=== PATIENT | female | born 1985 | race Caucasian/White ===

== ENCOUNTER 2019-02-12 06:31 | Inpatient (IN) | payer OTHER ==
[2019-02-12] MEDS ORDERED: METHYLERGONOVINE 0.2 MG/ML 1 ML AMP IM PRN (06:50)
[2019-02-12] MEDS ORDERED: OXYTOCIN 10 UNIT/ML 1 ML VIAL IM PRN (06:50)
[2019-02-12] MEDS ORDERED: CARBOPROST TROMETHAMINE 250 MCG/ML 1 ML AMP IM PRN (06:50)
[2019-02-12] MEDS ORDERED: AMPICILLIN 2,000 MG in SODIUM CHLORIDE 0.9% 100 ML IVPB STA (06:50)
[2019-02-12] MEDS ORDERED: TERBUTALINE 1 MG/ML VIAL SQ PRN (06:50)
[2019-02-12] MEDS ORDERED: LIDOCAINE 0.5% (PF) 5 MG/ML (50 ML SDV) SQ PRN (06:50)
[2019-02-12] MEDS ORDERED: BUTORPHANOL 1 MG/ML 1 ML VIAL IV PRN (06:52)
[2019-02-12] MEDS: LACTATED RINGERS 1,000 ML IV SCH ×2 (07:02→18:32)
[2019-02-12 07:13] LABS: Basophils # (A) 0.1 k/uL (0-0.2); Basophils % (A) 1 %; Eosinophils # (A) 0.2 k/uL (0-0.7); Eosinophils % (A) 2 %; HCT 39.6 % (34.0-46.0); HGB 12.8 gm/dL (11.4-16.0); Lymphocytes # (A) 2.4 k/uL (1.0-4.8); Lymphocytes % (A) 21 %; MCH 30.3 pg (25.0-35.0); MCHC 32.2 g/dL (31.0-37.0); MCV 93.8 fL (80.0-100.0); Mean Platelet Volume 6.7; Monocytes # (A) 0.6 k/uL (0-1.0); Monocytes % (A) 5 %; Neutrophils # (A) 7.8 k/uL (1.3-7.7); Neutrophils % (A) 69 %; Platelet Count 357 k/uL (150-450); RBC 4.22 m/uL (3.80-5.40); RDW 13.1 % (11.5-15.5); WBC 11.2 k/uL (3.8-10.6)
[2019-02-12 07:16] VITALS: BMI 27.8
[2019-02-12] MEDS ORDERED: SODIUM CHLORIDE 0.9% 100 ML BAG ONE (07:30)
[2019-02-12] MEDS ORDERED: fentaNYL (PF) 50 MCG/ML 5 ML AMP ONE (07:30)
[2019-02-12] MEDS ORDERED: ROPIVACAINE 5MG/ML 20ML VIAL ONE (07:30)
[2019-02-12] MEDS ORDERED: OXYTOCIN 30 UNITS/500 ML NS 30 UNIT in SALINE 1 500ML.BAG IV SCH (08:30)
--- NOTE | 2019-02-12 09:38 | P.PROBDLV ---
Vaginal Delivery Note - . Vaginal Delivery Note: This pleasant 33-year-old 2 para 1001 at 39-5/7 weeks presented to labor and delivery this morning with complaints of regular painful contractions. Patient had a relatively uncomplicated care with Dr. Jauregui. Patient was admitted progressed to 7 requested epidural, which was placed by anesthesia without difficulty. Patient progressed to complete, amniotomy was performed and clear fluid was obtained. Patient began pushing and had a normal spont aneous vaginal delivery of a viable female infant, at 926, Apgars of 9 and 9 at one and 5 minutes respectively. Weight is pending. After a two-minute delayed the umbilical cord is doubly clamped and cut and the placenta was delivered spontaneously intact with a three-vessel cord being noted. On inspection the patient's vaginal vault lacerations were noted. The uterus sounded to be firm and below the umbilicus lochia was noted to be minimal at this time. Estimated blood loss for the delivery 200 mL. Next Patient and tolerated delivery well and are resting comfortably.
[2019-02-12] MEDS ORDERED: diphenhydrAMINE 50 MG CAP PO PRN (09:39)
[2019-02-12] MEDS ORDERED: LANOLIN CREAM 5 GM TUBE TOPICAL PRN (09:39)
[2019-02-12] MEDS ORDERED: diphenhydrAMINE 50 MG/ML 1 ML VIAL IVP PRN ×2 (09:39)
[2019-02-12] MEDS ORDERED: WITCH HAZEL 1 EACH MED..PAD TOPICAL PRN (09:39)
[2019-02-12] MEDS ORDERED: HYDROCORTISONE 2.5% RECTAL CREAM 30 GM TUBE RECTAL PRN (09:39)
[2019-02-12] MEDS ORDERED: BENZOCAINE/MENTHOL SPRAY 1 GM/SPRAY AEROSOL TOPICAL PRN (09:39)
[2019-02-12] MEDS ORDERED: HYDROcodone/APAP 5-325MG 1 EACH TAB PO PRN (09:39)
[2019-02-12] MEDS ORDERED: ZOLPIDEM 5 MG TAB PO PRN (09:39)
[2019-02-12] MEDS ORDERED: diphenhydrAMINE 25 MG CAP PO PRN (09:39)
[2019-02-12] MEDS ORDERED: ACETAMINOPHEN TAB 325 MG TAB PO PRN (09:39)
[2019-02-12] MEDS ORDERED: SIMETHICONE 80 MG CHEWABLE PO PRN (09:39)
--- NOTE | 2019-02-12 09:42 | P.HPOB ---
History of Present Illness H&P Date: 02/12/19 Chief Complaint: IUP @ 39 5/7 weeks, labor This is a 33-year-old 2 para 1001 at 39-5/7 weeks estimated due date 02/14/19 based on last menstrual period, presents to labor and delivery with complaints of regular painful contractions. On initial cervical exam she was no michael to be 5 cm. Patient denied loss of fluid or vaginal bleeding. Patient notes good movement today patient has been receiving routine care with Dr. Corado since the first trimester. On patient's 20 week ultrasound placental findings consistent with peripheral cord insertion. labs she has a blood type of A+, rubella immune, RPR nonreactive, hepatitis B surface antigen negative, HIV negative. Group beta strep +01/10/19. Review of Systems Constitutional: Denies chills, Denies fatigue, Denies fever Ears, nose, mouth and throat: Denies headache Cardiovascular: Reports leg edema Respiratory: Denies dyspnea Gastrointestinal: Denies nausea, Denies vomiting Genitourinary: Reports Past Medical History Past Medical History: No Reported History History of Any Multi-Drug Resistant Organisms: None Reported Additional Past Surgical History / Comment(s): gland removed from labia Past Anesthesia/Blood Transfusion Reactions: No Reported Reaction Past Psychological History: No Psychological Hx Reported Smoking Status: Current every day smoker Past Alcohol Use History: None Reported Past Drug Use History: None Reported - Past Family History Mother Family Medical History: Thyroid Disorder Medications and Allergies Home Medications Medication Instructions Recorded Confirmed Type Pnv No.95/Ferrous Fum/Folic AC 1 tab PO DAILY 02/12/19 02/12/19 History [ Multivitamin Tablet] Allergies Allergy/AdvReac Type Severity Reaction Status Date / Time No Known Allergies Allergy Verified 02/12/19 06:49 Exam Osteopathic Statement: *. No significant issues noted on an osteopathic structural exam other than those noted in the History and Physical/Consult. Vital Signs Temp Pulse Resp BP 02/12/19 07:08 96.8 F L 78 18 120/71 02/12/19 06:50 96.8 F L 78 18 120/71 Intake and Output 02/11/19 02/12/19 02/12/19 22:59 06:59 14:59 Other: Weight 66.814 kg Targeted physical exam is performed on this date in general this is a well- nourished well-developed female in no acute distress, her breathing is noted to be nonlabored and her heart has regular rate and rhythm her abdomen is gravid and appropriate for gestational age. heart tones are category 1 and she is shabbir every 3-5 minutes. On cervical exam she is complete/100/0 station, amniotomy is performed and clear fluid was obtained. Results Result Diagrams: 02/12/19 07:02 Abnormal Lab Results - Last 24 Hours (Table) 02/12/19 Range/Units 07:02 WBC 11.2 H (3.8-10.6) k/uL Neutrophils # 7.8 H (1.3-7.7) k/uL Assessment and Plan (1) Term Current Visit: Yes Status: Acute Code(s): Z34.90 - ENCNTR FOR SUPRVSN OF NORMAL , UNSP, UNSP TRIMESTER SNOMED Code(s): 44575091 (2) Positive GBS test Current Visit: Yes Status: Acute Code(s): B95.1 - STREPTOCOCCUS, GROUP B, CAUSING DISEASES CLASSD ELSWHR SNOMED Code(s): 526141683 (3) Active labor Current Visit: Yes Status: Acute Code(s): EOE2201 - SNOMED Code(s): 866053975 Plan: Patient is admitted to labor and delivery, anticipate spontaneous vaginal delivery.
[2019-02-12] MEDS ORDERED: OXYTOCIN 20 UNITS/1000 ML NS 1,000 ML IV SCH (09:45)
[2019-02-12] MEDS ORDERED: AMPICILLIN 1,000 MG in SODIUM CHLORIDE 0.9% 50 ML IVPB SCH (11:00)
[2019-02-12] MEDS: IBUPROFEN 600 MG TAB PO PRN ×2 (16:04→22:20)
[2019-02-12] MEDS: SENNOSIDES-DOCUSATE SODIUM 1 EACH TAB PO SCH (20:06)
[2019-02-13] MEDS: IBUPROFEN 600 MG TAB PO PRN ×2 (05:13→14:55)
[2019-02-13 07:42] LABS: Basophils % (A) 0 %; Eosinophils # (A) 0.2 k/uL (0-0.7); Eosinophils % (A) 1 %; HCT 31.8 % (34.0-46.0); HGB 10.4 gm/dL (11.4-16.0); Lymphocytes # (A) 2.2 k/uL (1.0-4.8); Lymphocytes % (A) 17 %; MCH 30.5 pg (25.0-35.0); MCHC 32.6 g/dL (31.0-37.0); MCV 93.4 fL (80.0-100.0); Mean Platelet Volume 7.7; Monocytes # (A) 0.6 k/uL (0-1.0); Monocytes % (A) 5 %; Neutrophils # (A) 10.1 k/uL (1.3-7.7); Neutrophils % (A) 76 %; Platelet Count 300 k/uL (150-450); RDW 13.5 % (11.5-15.5); WBC 13.3 k/uL (3.8-10.6)
[2019-02-13] MEDS: SENNOSIDES-DOCUSATE SODIUM 1 EACH TAB PO SCH ×2 (08:23→20:10)
--- NOTE | 2019-02-13 08:43 | P.PN ---
Subjective Progress Note Date: 02/13/19 Principal diagnosis: day #1 Slept well. Minimal lochia rubra. No complaints. Objective - Vital Signs Vital signs: Vital Signs Temp 96.7 F L 02/12/19 23:24 Pulse 65 02/12/19 23:24 Resp 18 02/12/19 23:24 BP 116/69 02/12/19 23:24 Pulse Ox 97 02/12/19 16:00 Intake & Output 02/12/19 02/13/19 02/13/19 18:59 06:59 18:59 Intake Total 600 Balance 600 Intake: Oral 600 Other: # Voids 2 2 - Constitutional General appearance: Present: average body habitus, cooperative - EENT Eyes: Present: PERRLA ENT: Present: hearing grossly normal - Neck Thyroid: bilateral: normal size - Respiratory Respiratory: bilateral: CTA - Cardiovascular Rhythm: regular - Gastrointestinal General gastrointestinal: Present: normal bowel sounds - Genitourinary Genitourinary Comment(s): Fundus firm, midline, symmetric, 18 week size - Integumentary Integumentary: Present: normal - Neurologic Neurologic: Present: CNII-XII intact - Musculoskeletal Musculoskeletal: Present: gait normal, strength equal bilaterally, left sided weakness - Psychiatric Psychiatric: Present: A&O x's 3, appropriate affect, intact judgment & insight - Labs CBC & Chem 7: 02/13/19 06:28 Labs: Abnormal Lab Results - Last 24 Hours (Table) 02/13/19 Range/Units 06:28 WBC 13.3 H (3.8-10.6) k/uL RBC 3.40 L (3.80-5.40) m/uL Hgb 10.4 L (11.4-16.0) gm/dL Hct 31.8 L (34.0-46.0) % Neutrophils # 10.1 H (1.3-7.7) k/uL Assessment and Plan Assessment: day #1, doing well. infant receiving antibiotics for positive group B strep status. Plan: Continue care today. Likely discharge home tomorrow. Time with Patient: Less than 30
[2019-02-14] MEDS: IBUPROFEN 600 MG TAB PO PRN (00:03)
--- NOTE | 2019-02-14 07:44 | P.DS ---
Providers Date of admission: 02/12/19 06:43 Expected date of discharge: 02/14/19 Attending physician: Denae Corado Primary care physician: Stated None Hospital Course: This is a 34 -year-old 2 para 1001 EDC 02/14/2019 who presented at 39- 5/7 weeks' gestation in active spontaneous labor. was remarkable for positive group B strep cultures, rubella status immune, blood type A positive. Please see dictated history and physical for details. Patient was admitted, artificial amniorrhexis revealed clear fluid. She went on to swiftly deliver a liveborn female infant with scores of 9 and 9 at one and 5 minutes respectively. Infant weighed 6 lbs. 5 oz. or 2885 g. No lacerations or suturing was necessary. Please see dictated delivery note for details. Patient today is doing well, she is voiding, ambulating, passing flatus without difficulty. Vital signs are stable and she is afebrile. Fundus is firm and in the midline, symmetric and 18 week size. Breast-feeding is going well. Breast pump has been prescribed and received. Orting infant is doing well. Patient is judged to be in very good condition for discharge home. Extremities are negative for edema. Patient will follow-up with me in the office in 6 weeks. I have reminded her no intercourse, tampons or douching. She will use [id number] Advil or Aleve as needed for pain. She will call with any fevers shakes or chills, foul smelling or copious lochia, with the passage of large blood clots, with any pain not alleviated by [id number] products, or indeed with any concerns. We have briefly reviewed options for contraception and we will review this further in the office. Plan - Discharge Summary Discharge Rx Participant: No New Discharge Prescriptions: No Action Pnv No.95/Ferrous Fum/Folic AC [ Multivitamin Tablet] 1 tab PO DAILY Discharge Medication List Pnv No.95/Ferrous Fum/Folic AC [ Multivitamin Tablet] 1 tab PO DAILY 02/12/19 [History] Follow up Appointment(s)/Referral(s): Denae Corado MD [STAFF PHYSICIAN] - 6 Weeks Discharge Disposition: HOME SELF-CARE
[2019-02-14] MEDS: SENNOSIDES-DOCUSATE SODIUM 1 EACH TAB PO SCH (07:52)
[2019-02-14 12:23] VITALS: BP 119/71; PULSE 62; RESP 18; TEMP 98.2
== END 2019-02-14 11:45 | disposition home or self-care (01) | DRG 807 ==
LOC: FBPOP 06:31 → 4FBP 06:43
PROVIDERS: ADMIT Obstetrics & Gynecology Obstetrics; ATTEND Obstetrics & Gynecology
PROC: 10E0XZZ Delivery of Products of Conception, External Approach (ICD-10-PCS; principal; 2019-02-12)
PROC: 00HU33Z Insertion of Infusion Device into Spinal Canal, Percutaneous Approach (ICD-10-PCS; 2019-02-12)
PROC: 3E0R3BZ Introduction of Anesthetic Agent into Spinal Canal, Percutaneous Approach (ICD-10-PCS; 2019-02-12)
DX: O99.824 Streptococcus B carrier state complicating childbirth (principal); Z37.0 Single live birth; O99.334 Smoking (tobacco) complicating childbirth; O71.4 Obstetric high vaginal laceration alone; F17.200 Nicotine dependence, unspecified, uncomplicated; Z3A.39 39 weeks gestation of pregnancy; Z83.49 Family history of other endocrine, nutritional and metabolic diseases
CPT/HCPCS: 85025; 86850; 86900; 86901

== ENCOUNTER 2020-05-19 21:30 | Inpatient (IN) | payer OTHER ==
[2020-05-19] MEDS ORDERED: LIDOCAINE 0.5% (PF) 5 MG/ML (50 ML SDV) SQ PRN (21:48)
[2020-05-19] MEDS ORDERED: OXYTOCIN 10 UNIT/ML 1 ML VIAL IM PRN (21:48)
[2020-05-19] MEDS ORDERED: CARBOPROST TROMETHAMINE 250 MCG/ML 1 ML AMP IM PRN (21:48)
[2020-05-19] MEDS ORDERED: TERBUTALINE 1 MG/ML VIAL SQ PRN (21:48)
[2020-05-19] MEDS ORDERED: METHYLERGONOVINE 0.2 MG/ML 1 ML AMP IM PRN (21:48)
[2020-05-19 21:58] LABS: Basophils # (A) 0.1 k/uL (0-0.2); Basophils % (A) 0 %; Eosinophils # (A) 0.2 k/uL (0-0.7); Eosinophils % (A) 1 %; HCT 34.3 % (34.0-46.0); HGB 11.6 gm/dL (11.4-16.0); Lymphocytes # (A) 2.5 k/uL (1.0-4.8); Lymphocytes % (A) 14 %; MCH 32.2 pg (25.0-35.0); MCHC 33.8 g/dL (31.0-37.0); MCV 95.3 fL (80.0-100.0); Mean Platelet Volume 7.5; Monocytes # (A) 0.9 k/uL (0-1.0); Monocytes % (A) 5 %; Neutrophils # (A) 13.4 k/uL (1.3-7.7); Neutrophils % (A) 78 %; Platelet Count 364 k/uL (150-450); RDW 12.6 % (11.5-15.5); WBC 17.3 k/uL (3.8-10.6)
[2020-05-19] MEDS ORDERED: PENICILLIN G POTASSIUM 5,000,000 UNIT in DEXTROSE 5% IN WATER 100 ML IVPB ONE ×2 (22:00)
[2020-05-19] MEDS: LACTATED RINGERS 1,000 ML IV SCH ×2 (22:07→22:35)
[2020-05-19] MEDS ORDERED: SODIUM CHLORIDE 0.9% 100 ML BAG ONE (22:13)
[2020-05-19] MEDS ORDERED: fentaNYL (PF) 50 MCG/ML 5 ML AMP ONE (22:13)
[2020-05-19] MEDS ORDERED: ROPIVACAINE 5MG/ML 20ML VIAL ONE (22:13)
[2020-05-19] MEDS ORDERED: BUTORPHANOL 1 MG/ML 1 ML VIAL IV PRN (22:21)
--- NOTE | 2020-05-19 22:27 | P.HPOB ---
History of Present Illness H&P Date: 05/19/20 Chief Complaint: 37+ weeks, active labor The patient is a 35-year-old 3 para 2001 admitted at 37+ weeks as established by last menstrual period and confirmed by second trimester ultrasound. She is admitted in active labor with all signs reassuring. Her has been uncomplicated though group B strep status is not available at this time. As result, antibody prophylaxis has been started. Obstetrical history: 3 para 2001 with 2 term vaginal deliveries without complications. Current statistics are listed in history of present illness. EDC of 06/06/2020 was established by last menstrual period and confirmed by second trimester ultrasound. Laboratory workup demonstrates a blood type of A+ with a negative antibody screen. Rubella status is immune. All other laboratory workup was within normal limits aside from abnormal Pap smear for which she had colposcopy and was found low-grade findings. One hour Glucola was within normal limits. Group B strep status is pending. Gynecologic history: Unremarkable with no history of any infections to include STDs. Review of Systems Review of systems is confined to history of present illness. Past Medical History Past Medical History: No Reported History History of Any Multi-Drug Resistant Organisms: None Reported Additional Past Surgical History / Comment(s): gland removed from labia, wisdom tooth extraction Past Anesthesia/Blood Transfusion Reactions: No Reported Reaction Past Psychological History: No Psychological Hx Reported Smoking Status: Current every day smoker Past Alcohol Use History: None Reported Past Drug Use History: None Reported - Past Family History Mother Family Medical History: Thyroid Disorder Medications and Allergies Home Medications Medication Instructions Recorded Confirmed Type Pnv No.95/Ferrous Fum/Folic AC 1 tab PO DAILY 02/12/19 05/19/20 History [ Multivitamin Tablet] Allergies Allergy/AdvReac Type Severity Reaction Status Date / Time No Known Allergies Allergy Verified 02/12/19 06:49 Exam Vital Signs Temp Pulse Resp BP 05/19/20 22:19 97.7 F 80 16 134/68 05/19/20 21:54 97.7 F 65 16 134/68 Intake and Output 05/19/20 05/19/20 05/19/20 06:59 14:59 22:59 Other: # Voids 1 Weight 65.771 kg In general, this is a well-developed, well-nourished white female in some discomfort as she is in active labor. Her heart has a regular rhythm and rate without murmur. Her lungs are clear to auscultation bilaterally in all goff. Her abdomen is gravid, nondistended, has normal active bowel sounds, soft, nontender, and without any palpable masses aside from uterine fundus. Her extremities are without any cyanosis, clubbing, or significant edema and are nontender to palpation bilaterally. Digital cervical examination by the nursing staff demonstrates her cervix to be 6+ meters dilated, 90% effaced, with the vertex in presentation at -1 station. Membranes are intact. Results Result Diagrams: 05/19/20 21:49 Abnormal Lab Results - Last 24 Hours (Table) 05/19/20 Range/Units 21:49 WBC 17.3 H (3.8-10.6) k/uL RBC 3.60 L (3.80-5.40) m/uL Neutrophils # 13.4 H (1.3-7.7) k/uL Assessment and Plan (1) Active labor at term Current Visit: Yes Status: Acute Code(s): ZHT8339 - SNOMED Code(s): 12560799 Plan: The patient is admitted for active management of labor. As group B strep status is unknown and she has had 2 previous positive GBS cultures with previous pregnancies, antibody prophylaxis has been started. She has requested an epidural catheter which is currently being placed. She will have close maternal and surveillance and expectant management will be practice. We will leave the membranes intact to attempt to achieve 4 hours prior to delivery for group B strep prophylaxis. I would anticipate normal spontaneous vaginal delivery.
[2020-05-20] MEDS: LACTATED RINGERS 1,000 ML IV SCH (00:48)
[2020-05-20] MEDS ORDERED: PENICILLIN G POTASSIUM 2,500,000 UNIT in DEXTROSE 5% IN WATER 100 ML IVPB SCH ×2 (02:00)
[2020-05-20] MEDS ORDERED: LANOLIN CREAM 5 GM TUBE TOPICAL PRN (03:41)
[2020-05-20] MEDS ORDERED: diphenhydrAMINE 50 MG CAP PO PRN (03:41)
[2020-05-20] MEDS ORDERED: HYDROcodone/APAP 7.5-325MG 1 EACH TAB PO PRN (03:41)
[2020-05-20] MEDS ORDERED: diphenhydrAMINE 50 MG/ML 1 ML VIAL IVP PRN ×2 (03:41)
[2020-05-20] MEDS ORDERED: ZOLPIDEM 5 MG TAB PO PRN (03:41)
[2020-05-20] MEDS ORDERED: HYDROCORTISONE 2.5% RECTAL CREAM 30 GM TUBE RECTAL PRN (03:41)
[2020-05-20] MEDS ORDERED: HYDROcodone/APAP 5-325MG 1 EACH TAB PO PRN (03:41)
[2020-05-20] MEDS ORDERED: BENZOCAINE/MENTHOL SPRAY 1 GM/SPRAY AEROSOL TOPICAL PRN (03:41)
[2020-05-20] MEDS ORDERED: SIMETHICONE 80 MG CHEWABLE PO PRN (03:41)
[2020-05-20] MEDS ORDERED: diphenhydrAMINE 25 MG CAP PO PRN (03:41)
[2020-05-20] MEDS ORDERED: OXYTOCIN 20 UNITS/1000 ML NS 1,000 ML IV SCH (03:45)
--- NOTE | 2020-05-20 03:46 | P.PROBDLV ---
Vaginal Delivery Note - . Vaginal Delivery Note: The patient is a 35-year-old 3 para 2001 admitted at 37-3/7 weeks by good dating parameters. She is admitted in active labor with all signs reassuring. Her has been otherwise uncomplicated and group B strep status is unknown. As result, she had antibiotic prophylaxis started and had her membranes left intact until delivery in order to attempt to facilitate the antibiotic prophylaxis. She did remain for 2 doses of antibiotics during which time she progressed to complete. She underwent artificial rupture of membranes for clear fluid and then pushed once to a normal spontaneous vaginal delivery of a viable 6 lbs. 5 oz. baby boy with Apgars of 9 at 1 minute and 9 at 5 minutes delivered in the direct occiput anterior position. The placenta delivered spontaneously while I was still holding the infant on its own as the cord was being clamped. Examination of placenta demonstrated that it was grossly normal though there was approximately one third of the placenta that appeared to have adherent clot consistent with possible ongoing abruption. There was otherwise a centrally inserted grossly normal three-vessel cord. There were no lacerations of the perineum, vagina, or cervix. Estimated blood loss for the entire case is approximately 100 mL. All sponge, instrument, needle counts were correct. Both mother and infant are resting comfortably in recovery.
[2020-05-20] MEDS: SENNOSIDES-DOCUSATE SODIUM 1 EACH TAB PO SCH ×2 (08:27→20:21)
[2020-05-20] MEDS: IBUPROFEN 600 MG TAB PO PRN ×3 (11:11→23:56)
[2020-05-20 12:28] VITALS: RESP 16
[2020-05-20] MEDS: ACETAMINOPHEN TAB 325 MG TAB PO PRN (20:42)
[2020-05-21 00:03] VITALS: BP 119/65; PULSE 62; TEMP 98.3
[2020-05-21] MEDS: ACETAMINOPHEN TAB 325 MG TAB PO PRN (06:58)
[2020-05-21] MEDS: SENNOSIDES-DOCUSATE SODIUM 1 EACH TAB PO SCH (08:00)
--- NOTE | 2020-05-21 08:19 | P.DS ---
Providers Date of admission: 05/19/20 21:41 Expected date of discharge: 05/21/20 Attending physician: Denae Corado Primary care physician: Stated None Hospital Course: This is a 35-year-old white female 3 para 2002 EDC 06/06/2020 at 37-3/7 weeks' gestation. Patient presented from home with regular strong uterine contractions. is unremarkable with the exception of unknown group B strep status. Patient received 2 doses of antibiotics. Artificial amniorrhexis revealed clear fluid. She went on to deliver vaginally a liveborn male infant with scores of 9 and 9 at one and 5 minutes respectively. He weighed 6 lbs. 5 oz. or 2870 g. Please see dictated delivery note for details. This morning the patient is doing well. She is voiding, ambulating, passing flatus without difficulty. Vital signs are stable and she has remained afebrile. Fundus is firm and in the midline, symmetric and 18 week size. Breasts are not engorged. Breast-feeding is going well. infant has been circumcised. Patient is judged to be in very good condition for discharge home. She will use [id number] Advil or Aleve, or Motrin as needed for pain. She will continue taking her vitamin daily. She will call with any fevers shakes or chills, foul smelling or copious lochia, with the passage of large blood clots, with any pain not alleviated by tihm-lgh-[id number] products, or indeed with any concerns. We have briefly discussed options for contraception and we will review this further in the office. Assessment: Doing well day #1 Patient Condition at Discharge: Good Plan - Discharge Summary Discharge Rx Participant: No New Discharge Prescriptions: No Action Pnv No.95/Ferrous Fum/Folic AC [ Multivitamin Tablet] 1 tab PO DAILY Discharge Medication List Pnv No.95/Ferrous Fum/Folic AC [ Multivitamin Tablet] 1 tab PO DAILY 02/12/19 [History] Follow up Appointment(s)/Referral(s): Denae Corado MD [STAFF PHYSICIAN] - 6 Weeks Discharge Disposition: HOME SELF-CARE
--- NOTE | 2020-05-21 08:24 | P.MSEPDOC ---
Presenting Problems - Arrival Data Date of Arrival on Unit: 05/19/20 Time of Arrival on Unit: 21:54 Mode of Transport: Wheelchair - Complaint OB-Reason for Admission/Chief Complaint: Possible Onset of Labor Comment: Patient presents with contractions that started to become intense around 1700, states they are about 5-6 minutes apart. Medical History - Information : 3 Para: 2 Term: 2 : 0 Abortions: Spontaneous or Elective: 0 Number of Living Children: 2 - Gestational Age Gestational Age by CHAMP (wks/days): 37 Weeks and 4 Days - History Complications: Smoker Review of Systems - Review of Systems Constitutional: No problems Breast: No problems ENT: No problems Cardiovascular: No problems Respiratory: No problems Gastrointestinal: No problems Genitourinary: No problems Musculoskeletal: No problems Neurological: No problems Skin: No problems Vital Signs - Temperature Temperature: 98.3 F Temperature Source: Oral - Pulse Pulse Oximetery Pulse Rate: 62 Pulse Assessment Method: Automatic Cuff - Respirations Respiratory Rate: 16 Oxygen Delivery Method: Room Air - Blood Pressure Sitting Blood Pressure: 119/65 Blood Pressure Mean: 83 Blood Pressure Source: Automatic Cuff Medical Screen Scoring (Pre) - Cervical Exam Dilation: 4-7 cm = 2 Effacement: More than 50% = 2 Membranes: Intact - Uterine Contractions Frequency: > or = 36 weeks =2 Duration: > 40 seconds = 2 Intensity: N/A - Maternal Vital Signs Maternal Temperature: N/A Maternal Blood Pressure: N/A Signs of Preeclampsia: N/A Maternal Respirations: N/A - Maternal Trauma Maternal Trauma: N/A - Assessment - Baby A Baseline FHR: 140 Heart Rate - NICHD Category: Category I (Normal) = 0 NST: Reactive Position: N/A Station: N/A - Total Score - Baby A Total Score - Baby A: 8 - Total Score - Baby B Total Score - Baby B: 8 - Total Score - Baby C Total Score - Baby C: 8 - Level of Risk - Baby A Level of Risk - Baby A: Medium (6-9) - Level of Risk - Baby B Level of Risk - Baby B: Medium (6-9) - Level of Risk - Baby C Level of Risk - Baby C: Medium (6-9) Physician Notification (Pre) - Physician Notified Physician Notified Date: 05/19/20 Physician Notified Time: 21:41 New Order Received: Yes - Notification Comment Comment: Admit patient for labor, patient may have epidural if and when needed, start antibiotics if GBS positive or unknown per protocol. Disposition - Disposition OB Disposition: Admit Transferred to:: [address] 1 I agree with the RN Medical Screening Exam: Yes Risk & Benefit of care provided described in d/c instruction: Yes Diagnosis: admit
== END 2020-05-21 10:45 | disposition home or self-care (01) | DRG 807 ==
LOC: FBPOP 21:30 → 4FBP 21:41
PROVIDERS: ADMIT Obstetrics & Gynecology; ATTEND Obstetrics & Gynecology
PROC: 3E0R3BZ Introduction of Anesthetic Agent into Spinal Canal, Percutaneous Approach (ICD-10-PCS; principal; 2020-05-20)
PROC: 00HU33Z Insertion of Infusion Device into Spinal Canal, Percutaneous Approach (ICD-10-PCS; principal; 2020-05-20)
PROC: 10E0XZZ Delivery of Products of Conception, External Approach (ICD-10-PCS; principal; 2020-05-20)
DX: O99.334 Smoking (tobacco) complicating childbirth (principal); Z37.0 Single live birth; F17.210 Nicotine dependence, cigarettes, uncomplicated; Z3A.37 37 weeks gestation of pregnancy; Z83.49 Family history of other endocrine, nutritional and metabolic diseases
CPT/HCPCS: 59025; 85025; 86850; 86900; 86901; 99213

== ENCOUNTER → 2021-04-24 | Outpatient (CLI) | payer OTHER ==
[2021-04-24 14:18] VITALS: BP 108/72; PULSE 89; RESP 16; TEMP 98.7
--- NOTE | 2021-04-24 14:32 | P.GSHP ---
History of Present Illness H&P Date: 04/24/21 Chief Complaint: mass right breast Iraida is a 35 year old white female seen in consultation for Dr. Miller regarding a lump in her right breast. She states the lump has been present since July. It is not painful. It has not changed in size. She has been breast-feeding since May 2020. She is able to breast feed without any difficulty. She has never had anything like this in the past. He is not complaining of any bloody nipple discharge. She underwent an ultrasound of the right breast on [id number]. This revealed a septated cystic mass at the region of the palpable lump in the 9 o'clock position of the right breast and measured 3.6 cm in greatest dimension. Caffeine: 2 cups per day Nicotine: 1PPD chocolate: daily Family history: maternal great aunt: breast cancer maternal grandfather: prostate cancer Hormonal History: menarche: 12 , breast fed:yes, age at first : 25 periods regular, LMP: 3 weeks ago hormones: none BCP: copper IUD, shortly as a teen Surgical history: labial gland removed Medical History: none Social history: Nicotine: One pack per day for 18 years Alcohol: Negative Drugs: Negative - Constitutional Constitutional: Denies chills, Denies fever - EENT Eyes: denies blurred vision, denies pain Ears: deny: decreased hearing, tinnitus Ears, nose, mouth and throat: Denies headache, Denies sore throat - Breasts Breasts: bilateral: as per HPI - Cardiovascular Cardiovascular: Denies chest pain, Denies shortness of breath - Respiratory Comment: smoker Respiratory: Denies cough, Denies 7 - Gastrointestinal Gastrointestinal: Denies abdominal pain, Denies diarrhea, Denies nausea, Denies vomiting - Genitourinary (Female) Genitourinary: Denies dysuria, Denies hematuria - Menstruation Menstruation: Reports period normal - Musculoskeletal Musculoskeletal: Denies myalgias - Integumentary Integumentary: Denies pruritus, Denies rash - Neurological Neurological: Denies numbness, Denies weakness - Psychiatric Psychiatric: Denies anxiety, Denies depression - Endocrine Endocrine: Denies fatigue, Denies weight change - Hematologic/Lymphatic Comment: none - Allergic/Immunologic Allergic/Immunologic: Reports as per HPI Past Medical History Past Medical History: No Reported History History of Any Multi-Drug Resistant Organisms: None Reported Additional Past Surgical History / Comment(s): gland removed from labia, wisdom tooth extraction Past Anesthesia/Blood Transfusion Reactions: No Reported Reaction Past Psychological History: No Psychological Hx Reported Smoking Status: Current every day smoker Past Alcohol Use History: None Reported Past Drug Use History: None Reported - Past Family History Mother Family Medical History: Thyroid Disorder Medications and Allergies Home Medications Medication Instructions Recorded Confirmed Type Pnv No.95/Ferrous Fum/Folic AC 1 tab PO DAILY 02/12/19 05/19/20 History [ Multivitamin Tablet] Allergies Allergy/AdvReac Type Severity Reaction Status Date / Time No Known Allergies Allergy Verified 02/12/19 06:49 Surgical - Exam BMI 22.9 - General no distress - Eyes normal ocular movement - ENT no hearing loss, no congestion - Neck trachea midline - Respiratory normal respiratory effort, clear to auscultation - Cardiovascular Heart Sounds: normal: S1, S2 - Abdomen Abdomen: soft, non tender, no guarding, no rigid, no rebound - Integumentary normal turgor - Musculoskeletal normal gait - Psychiatric oriented to time, oriented to person, oriented to place, speech is normal, memory intact Breast exam: BRA: 32A inspection: bilateral grade 2 Palpation: Right breast: Multi-positional exam in the 9 o'clock position approximately 3 cm smooth-walled cystic-like structure, no other dominant masses or nodules of concern, fibrocystic changes Right axilla: No adenopathy of concern Left breast: Multi-positional exam no dominant masses or nodules of concern, fibrocystic changes Left axilla: No adenopathy of concern Results Ultrasound reviewed with Dr. Lizama/findings most likely consistent with a complex cyst versus galactocele Assessment and Plan Assessment: Impression: 1. Fibrocystic breast changes 2. Cystic mass ? galactocele right breast 3. She presently breast feeding 4. Nicotine dependence Plan: 1. Aspiration cystic lesion right breast, if this recurs ultrasound-guided aspiration as it may be loculated Risk and benefits to procedure discussed with the patient. Risks include but are not limited to bleeding, infection, reaction to the anesthetic. This may have milky contents in it and as she continues breast-feeding we'll most likely recur. CC: Dr. Miller
--- NOTE | 2021-04-24 14:39 | P.PCN ---
Date of Procedure: 04/24/21 Preoperative Diagnosis: Palpable mass right breast Postoperative Diagnosis: Same Procedure(s) Performed: Aspiration mass right breast Anesthesia: local Surgeon: Mehreen Aj Pathology: other (breast fluid for cytology) Disposition: same day Indications for Procedure: Cystic mass right breast Operative Findings: 12 mL of milk-colored fluid Description of Procedure: The area of concern in the right breast was prepped using Betadine. Approximately 3 mL of 1% lidocaine were used to anesthetize the area of concern. An 18-gauge needle on a 12 mL syringe was inserted into the area of concern. Approximately 12 mL of milky colored fluid was obtained with resolution of the cystic mass. The patient tolerated procedure in stable condition. The fluid was sent for cytology. The patient 3 weeks.
== END ==
LOC: WWCWWP 14:00
PROVIDERS: ATTEND Surgery
DX: N60.11 Diffuse cystic mastopathy of right breast (principal); N60.12 Diffuse cystic mastopathy of left breast; N64.89 Other specified disorders of breast; F17.200 Nicotine dependence, unspecified, uncomplicated